=== PATIENT | female | born 1990 | race Caucasian/White ===

== ENCOUNTER → 2018-07-20 | Outpatient (CLI) | payer OTHER ==
--- NOTE | 2018-07-20 10:51 | DIREP ---
PROCEDURE:US OB 1ST TRI TRANS ABD COMPARISON:None. INDICATIONS:PREG EXAM POSITIVE RESULT TECHNIQUE:Transabdominal and endovaginal pelvic ultrasound images were obtained. Endovaginal images were obtained to optimally evaluate the and maternal adnexal structures. FINDINGS: LMP: May 27, 2018, corresponding to an EGA of 7 W 5 D NICK (LMP): Mar 03, 2019 INTRAUTERINE GESTATIONAL SAC:Present. Moderate subchorionic bleed measures 1.2 x 1.1 x 0.9 cm. YOLK SAC: Present. POLE: Present. CRL = 0.5 cm, corresponding to an EGA of 6 W 1 D. US NICK:Mar 14, 2019. Used to re-date this . CARDIAC ACTIVITY:Present. 108 bpm. UTERUS:Normal. OVARIES:Right ovary measures 3.8 x 2.4 x 1.8 cm. Left ovary measures 4.4 x 3.9 x 3.8 cm. There are no adnexal masses. Corpus luteum cyst 2.8 x 2.3 cm CUL-DE-SAC:Normal. OTHER:Fluid-filled structure seen on the last provided sagittal images may reflect fluid-filled bowel, this is felt less likely reflect cervical canal fluid as images that are labeled cervix on image 7 and 8 demonstrate only trace fluid likely reflecting mucous plug. CONCLUSION: 1. Single live intrauterine with crown-rump length corresponding to 6 week 1 day gestation, NICK March 14, 2019. 2. Subchorionic hemorrhage. Dictated by: MARY Physician on 07/20/2018 at 09:47 AM ld
== END | disposition home or self-care (01) ==
LOC: RAD 08:55
PROVIDERS: ATTEND Obstetrics & Gynecology
DX: Z32.01 Encounter for pregnancy test, result positive (principal)
CPT/HCPCS: 76801; 76817